=== PATIENT | female | born 1945 | race Caucasian/White ===

== ENCOUNTER 2017-03-10 14:53 | Observation (INO) | payer MEDICARE ==
--- OUTSIDE RECORDS SUMMARY | 2017-03-10 14:56 | XMS REPORT | Continuity of Care Document ---
:1945 Author Organization [facility] ([facility]) Address [address] [place] [address] Phone [phone] Care Team Providers Name Role Phone Unavailable Primary Care Provider Unavailable Source Comments This disclosure is being made pursuant to the Care Everywhere program, applicable federal and state laws, and may not contain all informaitonavailable regarding this patient.[facility] ([facility]) Active Allergies and Adverse Reactions Allergen Noted Date Severity Reactions Comments Morphine OTHER "turned Yellow" Penicillins Urticaria (Hives),Nausea & Vomiting Pineapple Urticaria (Hives) Current Medications Not on file Active Problems Not on file Social History Tobacco Use Types Packs/Day Years Used Date Never Assessed Last Filed Vital Signs Vital Sign Reading Time Taken Blood Pressure - - Pulse - - Temperature - - Respiratory Rate - - Height 1.5 m (4' 11.05") 08/23/2005 8:32 AM CDT Weight 45.7 kg (100 lb 12 oz) 08/23/2005 8:32 AM CDT Body Mass Index 20.31 08/23/2005 8:32 AM CDT Oxygen Saturation - - Plan of Care Health Maintenance Due Date Last Done Comments HCV Screening 1945 Hepatitis B Vaccine (1 of 3 - Primary Series) 1945 Tdap Vaccine 1956 Lipid Disorder Screening 1963 Td Vaccine 1963 Mammogram 1985 Colonoscopy 1995 Zoster Vaccine 2005 Osteoporosis Screening (DXA Bone Density) 2010 Pneumococcal Vaccine (1 of 2 - PCV13) 2010 Influenza Vaccine: Seasonal (#1) 06/10/2016 Results from Last 3 Months Not on file
[2017-03-10 15:29] LABS: Hematocrit 35.4 % (37.0-47.0); Hemoglobin 12.6 gm/dL (12.5-16.0); Mean Cell Volume 91.5 fl (78-100); Mean Corpuscular Hemoglobin 32.6 pg (27-31); Mean Corpuscular Hgb Conc 35.6 g/dl (32-36); Mean Platelet Volume 11.4 fl (6.0-9.5); Neutrophil # 8.9 K/mm3 (1.3-6.0); Neutrophil % 61.8 % (42-75.0); Platelet Count 388 K/mm3 (150-450); Red Blood Count 3.87 M/mm3 (4.2-5.4); Red Cell Distribution Width 15.1 % (11.5-14.0); White Blood Count 14.4 K/mm3 (4.0-10.5)
[2017-03-10 15:33] LABS: Albumin * 3.6 gm/dl (3.4-5.0); Anion Gap 12.9 mmol/L (6.8-13.8); BUN/Creatinine Ratio 12.2 (9.0-21.6); Bilirubin, Total 0.2 mg/dL (0.0-1.1); Ca. Corrected For Albumin 8.3 mg/dL (8.4-10.2); Calcium * 8.3 mg/dL (7.9-10.9); Carbon Dioxide 29.9 mmol/L (24-32.6); Potassium 3.8 mmol/L (3.4-4.6); Total Protein 6.9 gm/dL (6.2-8.2)
[2017-03-10] MEDS ORDERED: NITROGLYCERIN 0.4 MG/TAB BTL SL PRN (20:54)
[2017-03-10] MEDS ORDERED: INSULIN GLARGINE,HUM.REC.ANLOG 100 UNITS/ML VIAL SC SCH (21:00)
[2017-03-10] MEDS ORDERED: metFORMIN HCL 500 MG TABLET ONE (21:13)
[2017-03-10] MEDS: GABAPENTIN 600 MG TABLET PO SCH (21:23)
[2017-03-10] MEDS ORDERED: ACETAMINOPHEN 500 MG TABLET PO PRN (23:53)
[2017-03-11] MEDS ORDERED: ACETAMINOPHEN 500 MG TABLET PO PRN (00:31)
[2017-03-11 06:49] LABS: Urine Bilirubin Negative (NEGATIVE); Urine Blood Negative /ul (NEGATIVE); Urine Ketone Negative (NEGATIVE); Urine Nitrite Negative (NEGATIVE); Urine Protein Negative (NEGATIVE); Urine Urobilinogen Normal (NORMAL); Urine pH 5.5 pH (5.0-7.0)
[2017-03-11 07:00] LABS: Urine Appearance Clear; Urine Color Yellow
[2017-03-11] MEDS ORDERED: PANTOPRAZOLE SODIUM 40 MG TABLET.EC PO SCH (07:00)
[2017-03-11 07:01] LABS: Urine Bacteria 1+; Urine RBC None Seen /hpf (0-5); Urine WBC 0-5 /hpf (0-5)
[2017-03-11] MEDS: GABAPENTIN 600 MG TABLET PO SCH ×2 (08:27→12:20)
[2017-03-11] MEDS ORDERED: amLODIPine BESYLATE 5 MG TABLET PO SCH (09:00)
[2017-03-11] MEDS ORDERED: ROSUVASTATIN CALCIUM 10 MG TABLET PO SCH ×2 (09:00→21:00)
[2017-03-11] MEDS ORDERED: METOPROLOL SUCCINATE 25 MG TABLET.SA PO SCH (09:00)
[2017-03-11] MEDS ORDERED: LISINOPRIL 10 MG TABLET PO SCH (09:00)
[2017-03-11] MEDS ORDERED: MULTIVIT WITH IRON-MINERALS 1 TAB TABLET PO SCH (09:00)
[2017-03-11] MEDS ORDERED: ASPIRIN 81 MG TABLET.DR PO SCH (09:00)
[2017-03-11] MEDS ORDERED: buPROPion HCL 150 MG TAB.SR.24H PO SCH (09:00)
[2017-03-11] MEDS ORDERED: Regadenoson 0.08 MG/ML SYRG IV ONE (12:00)
[2017-03-11] MEDS ORDERED: Regadenoson 0.1 MG UNIT IV ONE (12:00)
--- NOTE | 2017-03-11 12:33 | DS ---
<Stacie Carrasquillo - Last Filed: 03/11/17 13:44> Description of Stay: Increase Welbutrin Sr to 300 mg Daily. Script provided prior to discharge. Disposition: Home self-care Condition: Good Referrals: Tanya Rios MD [Primary Care Provider] - Problem Oriented Discharge Instructions to Patient/Family: Nonspecific Chest Pain, [id number] Additional Patient Instructions (free text): Follow up with PCP in [address] Rios on 03-25-17 @ 10:30am. Please make an appointment with her customer service receptionist .Dr. Parks here on 03-31-17 @ 1:30pm. Prescriptions (Any new or edited meds): buPROPion HCL [Wellbutrin Xl] 300 mg PO DAILY #30 tab.sr.24h Complete Home Medications List: Complete Home Medication List: Gabapentin [Neurontin] 600 mg PO TID 09/26/13 Amlodipine Besylate [Norvasc] 2.5 mg PO DAILY 03/10/17 Aspirin [Aspirin EC] 81 mg PO DAILY 03/10/17 Atorvastatin Calcium [Lipitor] 80 mg PO DAILY 03/10/17 Insulin Glargine,Hum.rec.anlog [Lantus] 15 units SQ HS 03/10/17 Lisinopril [Zestril] 30 mg PO DAILY 03/10/17 Metoprolol Succinate 25 mg PO DAILY 03/10/17 Mv,Calcium,Min/Iron/Folic/Vitk [Multi For Her Tablet] 1 each PO DAILY 03/10/17 Nitroglycerin [Nitrostat] 1 tab SL PRN PRN MDD 3 03/10/17 Omeprazole 40 mg PO DAILY 03/10/17 buPROPion HCL [Wellbutrin Xl] 150 mg PO DAILY 03/10/17 metFORMIN HCL [Glucophage] 1,000 mg PO BIDWM 03/10/17 buPROPion HCL [Wellbutrin Xl] 300 mg PO DAILY #30 tab.sr.24h 03/11/17 <Tanya Rios - Last Filed: 03/12/17 07:21> (1) Chest pain Diagnosis(s): AMI ruled out. Her stress test showed no reversible myocardial ischemia. It showed a fixed defect in the septum. EF 70%. Problem: Acute Qualifiers: Chest pain type: precordial pain Qualified Code(s): R07.2 - Precordial pain (2) CAD (coronary artery disease) Problem: Chronic Qualifiers: Coronary Disease-Associated Artery/Lesion type: bypass graft, other Associated angina: with stable angina Qualified Code(s): I25.798 - Atherosclerosis of other coronary artery bypass graft(s) with other forms of angina pectoris (3) Hypertension Problem: Chronic Qualifiers: Hypertension type: essential hypertension Qualified Code(s): I10 - Essential (primary) hypertension (4) Diabetes mellitus type 2 in nonobese Problem: Acute (5) COPD (chronic obstructive pulmonary disease) Problem: Chronic Qualifiers: COPD type: chronic bronchitis Chronic bronchitis type: unspecified Qualified Code(s): J42 - Unspecified chronic bronchitis (6) Hyperlipidemia Problem: Chronic Qualifiers: Hyperlipidemia type: mixed hyperlipidemia Qualified Code(s): E78.2 - Mixed hyperlipidemia (7) GERD (gastroesophageal reflux disease) Problem: Chronic Qualifiers: Esophagitis presence: esophagitis presence not specified Qualified Code(s) : K21.9 - Gastro-esophageal reflux disease without esophagitis Description of Stay: Sharyn Alejandro, is a 72-year-old white female, with previous medical history of coronary artery disease status post stenting to the right circumflex /CABG, carotid artery disease, diabetes mellitus type 2, GERD, hyperlipidemia, COPD who was admitted yesterday on 03/10/2017 because of chest pain. The patient was seen in my office yesterday for routine follow-up and she said that she has been having chest pain on and off for the last 2 weeks. She told me that she just had one that morning which lasted for 1 hour, dull in character, nonradiating, relieved with nitroglycerin and aspirin. She denied any nausea or vomiting. She was then admitted under our chest pain protocol. She ruled out for acute myocardial infarction. She underwent a nuclear pharmacologic stress test this morning and it did not show reversible myocardial ischemia. 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 She is stable to be discharge and follow up with her customer service receptionist. Procedures Performed: none Discharge Disposition: Home self care Discharge Activity: Activity as tolerated Discharge Diet: Consistent carbs
[2017-03-11 12:45] VITALS: BP 141/69
== END 2017-03-11 14:26 | disposition home or self-care (01) ==
LOC: MS 14:53
PROVIDERS: ADMIT Internal Medicine; ATTEND Internal Medicine
DX: I25.708 Atherosclerosis of coronary artery bypass graft(s), unspecified, with other forms of angina pectoris (principal); R07.2 Precordial pain; J42 Unspecified chronic bronchitis; Z87.891 Personal history of nicotine dependence; E78.5 Hyperlipidemia, unspecified; K21.9 Gastro-esophageal reflux disease without esophagitis
CPT/HCPCS: 36415; 71020; 78452; 80053; 81001; 84484; 85025; 93005; 93017; 96372; A9502; G0378; G0379; J2785